=== PATIENT | female | born 1985 | race Two or more races ===

== ENCOUNTER 2022-04-29 18:39 | Emergency (ER) | payer BC ==
[~2022-04-29] VITALS: Ht 154.9 cm; Wt 60.8 kg
--- NOTE | 2022-04-29 20:25 | NUR ---
Dr. Saeed at bedside for MSE.
[2022-04-29] MEDS ORDERED: METOCLOPRAMIDE HCL 10 MG/2 ML VIAL IV ONE (20:30)
[2022-04-29] MEDS ORDERED: KETOROLAC TROMETHAMINE 30 MG INJ IVP ONE (20:30)
[2022-04-29] MEDS ORDERED: IV NS 1000 ML 1,000 ML IV ONE (20:30)
[2022-04-29] MEDS ORDERED: diphenhydrAMINE 50 MG/1 ML VIAL IV ONE (20:30)
[2022-04-29] MEDS ORDERED: METOCLOPRAMIDE HCL 10 MG/2 ML VIAL ONE (20:59)
[2022-04-29] MEDS ORDERED: diphenhydrAMINE 50 MG/1 ML VIAL ONE (20:59)
[2022-04-29] MEDS ORDERED: KETOROLAC TROMETHAMINE 30 MG INJ ONE (20:59)
[2022-04-29 21:34] LABS: HEMATOCRIT 39.5 % (31.2-41.9); MEAN CORPUSCULAR HEMOGLOBIN 31.8 uug (24.7-32.8); MEAN CORPUSCULAR VOLUME 94.9 fL (75.5-95.3); PLATELET COUNT (AUTO) 249 K/uL (179-408)
[2022-04-29 21:35] LABS: CREATININE 0.9 mg/dL (0.6-1.3); POTASSIUM 4.1 mmol/L (3.5-5.1)
[2022-04-29] MEDS ORDERED: DIPH25CA83 PO (22:30)
[2022-04-29] MEDS ORDERED: METO-295 PO (22:30)
[2022-04-29] MEDS ORDERED: NAPR-1164 PO (22:30)
--- NOTE | 2022-04-29 22:36 | NUR ---
Patient discharged to home in stable condition. Written and verbal after care instructions given. Patient verbalizes understanding of instructions. Stressed follow up or return to ER for worsening s/s. Patient out of ER with steady gait, no acute signs of distress, VSS, all belongings taken, IV site discontinued, provided with copies of lab results.
[2022-04-29 22:37] VITALS: BP 128/96
== END 2022-04-29 22:37 | disposition home or self-care (01) ==
LOC: ER 19:23
DX: G43.909 Migraine, unspecified, not intractable, without status migrainosus (principal); R04.0 Epistaxis; Z88.6 Allergy status to analgesic agent; Z88.5 Allergy status to narcotic agent
CPT/HCPCS: 99284; 96374; 96375; 96361; 80048; 83735; 85025; 36415; J1200; J1885; J2765; J7040; A4663